=== PATIENT | male | born 1950 | race Native Hawaiian/Other Pacific Islander ===

== ENCOUNTER 2020-08-26 17:24 | Outpatient (CLI) | payer OTHER, BC ==
[2020-08-26 20:26] LABS: PLATELET COUNT 336 K/uL (142-355)
[2020-08-26 21:53] LABS: POTASSIUM 5.5 mmol/L (3.6-5.2)
== END 2020-08-26 23:40 | disposition home or self-care (01) ==
LOC: LABW 17:24 → LAB 17:24
PROVIDERS: Nurse Practitioner Family
DX: Z00.00 Encounter for general adult medical examination without abnormal findings (principal); I10 Essential (primary) hypertension; E11.9 Type 2 diabetes mellitus without complications; E78.49 Other hyperlipidemia; E55.9 Vitamin D deficiency, unspecified; Z79.899 Other long term (current) drug therapy; Z12.5 Encounter for screening for malignant neoplasm of prostate
CPT/HCPCS: 80053; 80061; 82306; 82607; 83036; 83735; 84153; 84439; 84443; 85027